=== PATIENT | male | born 1965 | race Two or more races ===

== ENCOUNTER 2016-04-20 17:10 | Emergency (ER) | payer OTHER ==
[~2016-04-20] VITALS: Ht 180.3 cm; Wt 93.0 kg
[2016-04-20 17:39] LABS: Basophils # (auto) 0 uL; Basophils % (auto) 0.4 % (0.0-2.0); Eosinophils # (auto) 0.2 uL; Hematocrit 40.3 % (41.0-53.0); Hemoglobin 13.9 g/dL (13.5-17.5); Lymphocytes # (auto) 2.1 uL; Lymphocytes % (auto) 31.1 % (10.0-50.0); Mean Corpuscular Hemoglobin 30.5 pg (28.0-32.0); Mean Corpuscular Hgb Conc. 34.4 g/dL (32.0-36.0); Mean Corpuscular Volume 88.8 fL (80.0-100.0); Mean Platelet Volume 8.2 fL (7.4-10.4); Monocytes # (auto) 0.4 uL; Monocytes % (auto) 5.6 % (0.0-12.0); Neutrophils # (auto) 4.1 uL; Neutrophils % (auto) 59.9 % (37.0-80.0); Platelet Count (auto) 273 10^3/uL (140-450); Red Cell Distribution Width 14.3 % (11.6-16.0); White Blood Cell 6.9 10^3/uL (4.4-10.8)
[2016-04-20 18:05] LABS: INR 1.05 (0.9-1.15); Partial Thromboplastin Time 25.6 sec (22.64-33.71); Prothrombin Time 10.8 sec (9.37-12.3)
[2016-04-20 18:07] LABS: Alkaline Phosphatase 191 U/L (45-117); Anion Gap 12 (5-15); Aspartate Aminotransferase 45 U/L (15-37); BUN/Creatinine Ratio 10.8; Bilirubin, Total 0.4 mg/dL (0.2-1.0); Blood Urea Nitrogen 12 mg/dL (7-18); Calcium 8.8 mg/dL (8.5-10.1); Carbon Dioxide 25 mmol/L (21-32); Chloride 102 mmol/L (98-107); GFR African American 91 mL/min; GFR Non-African American 75 mL/min; Magnesium 2.4 mg/dL (1.6-2.6); Potassium 4.4 mmol/L (3.5-5.1); Sodium 139 mmol/L (136-145); Total Protein 7.4 g/dL (6.4-8.2)
[2016-04-20 18:12] LABS: Glucose 574 mg/dL (74-106)
[2016-04-20] MEDS ORDERED: SODIUM CHLORIDE 0.9% 1,000 ML IV ONE ×2 (18:12→23:45)
[2016-04-20 18:14] LABS: Temperature: 21.9 C (20.0-25.0)
[2016-04-20 19:03] LABS: Urine Bilirubin Negative (Negative); Urine Blood Negative /uL (Negative); Urine Color Yellow (Yellow); Urine Ketone Negative (Negative); Urine Nitrite Negative (Negative); Urine RBC <1 /hpf (0 - 3); Urine Urobilinogen Normal (Negative)
[2016-04-20 19:04] LABS: Urine Glucose 4+ mg/dL (Normal)
[2016-04-20] MEDS ORDERED: INSLANTI SC (20:14)
[2016-04-20] MEDS ORDERED: INSLISPI SC (20:14)
[2016-04-20] MEDS ORDERED: InsuLIN REG 1unit/0.01ml Soln (100units/ml) IV ONE (23:45)
[2016-04-20] MEDS ORDERED: cefTRIAXone 1GM/50ML D5W 50 ML IV ONE (23:45)
[2016-04-21] MEDS ORDERED: cefTRIAXone 1GM/50ML D5W 50 ML IV ONE (05:00)
[2016-04-21] MEDS ORDERED: InsuLIN REG 1unit/0.01ml Soln (100units/ml) IV ONE (05:00)
[2016-04-21 07:38] VITALS: BP 118/96
== END 2016-04-21 07:40 | disposition home or self-care (01) ==
LOC: ER 17:17
DX: E10.65 Type 1 diabetes mellitus with hyperglycemia (principal); Z79.4 Long term (current) use of insulin; J20.9 Acute bronchitis, unspecified; I10 Essential (primary) hypertension
CPT/HCPCS: 36415; 71010; 80053; 81001; 82010; 82962; 83735; 83880; 84443; 84484; 85025; 85610; 85730; 93005; 96361; 96365; 96375; 99285; J0696; J7030

== ENCOUNTER 2016-07-28 07:09 | Emergency (ER) | payer OTHER ==
[~2016-07-28] VITALS: Ht 180.3 cm; Wt 97.5 kg
[~2016-07-28 07:09] MED LIST: INSLANTI SC; INSLISPI SC
[2016-07-28 07:47] VITALS: BP 128/78
== END 2016-07-28 08:10 | disposition left against medical advice (07) ==
LOC: EDBD 07:09 → ER 07:09
DX: R11.2 Nausea with vomiting, unspecified (principal); Z53.21 Procedure and treatment not carried out due to patient leaving prior to being seen by health care provider